=== PATIENT | female | born 2005 | race Caucasian/White ===

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

== ENCOUNTER 2023-07-22 20:40 | Emergency (ER) | payer MEDICAID, SELFPAY ==
[2023-07-22 21:10] VITALS: BP 103/75; PULSE 98; RESP 18; TEMP 36.3; O2SAT 98; BMI 28.3
--- NOTE | 2023-07-22 22:57 | ED.GENADULT ---
HPI - General Adult General Chief complaint: Upper Respiratory Symptoms Stated complaint: cough/flu like symptoms Time Seen by Provider: 07/22/23 21:33 Source: patient, family and RN notes reviewed Mode of arrival: ambulatory Limitations: no limitations History of Present Illness HPI narrative: 18-year-old male presents for evaluation of cough, sore throat, congestion, fever and body aches for a week and half She reports that her daughter and significant other have similar symptoms She denies any shortness of breath or chest pain Patient is otherwise generally healthy No other complaints or concerns at this time Related Data Previous Rx's Medication Instructions Recorded nitrofurantoin 100 mg PO Q12H 5 days #10 caps 12/08/22 monohydrate/macrocrystals 100 mg capsule (Macrobid) Allergies Allergy/AdvReac Type Severity Reaction Status Date / Time No Known Allergies Allergy Unverified 04/04/20 18:56 [No Known Allergies*] Review of Systems Constitutional: Constitutional: Reports body ache(s), Reports chills, Reports fever(s) and Reports headache(s) ENT: Reports headache(s) and Reports sore throat Cardiovascular: Cardiovascular: Denies dyspnea Respiratory: Respiratory: Reports cough and Denies dyspnea Gastrointestinal: Gastrointestinal: Denies abdominal pain, Denies nausea and Denies vomiting Musculoskeletal: Musculoskeletal: Reports back pain Integumentary/Breasts: Skin/Breast: Denies rash Neurologic: Reports headache(s) PMFSH Social History Social History Alcohol intake: never Advance Directives: No Advance Directives Information Provided: No Physical Exam ED Vital Signs: Vital Signs - 24 hr 07/22/23 21:10 Temperature 97.4 F Pulse Rate 98 Respiratory Rate 18 Blood Pressure 103/75 Pulse Oximetry 98 Oxygen Delivery Method Room Air BMI result Body Mass Index 28.3 Const General: healthy appearing, comfortable, no acute distress, alert and awake Nutritional Appearance: well nourished Orientation/consciousness: patient oriented x3 HENMT Head: Yes normocephalic and Yes atraumatic Eyes Eyelids: Yes eyelids normal Conjunctivae: conjunctivae normal Sclerae: sclerae normal Corneas: corneas normal EOM: EOMs intact bilaterally Neck Neck: Yes full ROM Resp Effort & Inspection: normal respiratory effort, able to speak in complete sentences and not labored Skin General skin exam: elasticity normal Neuro General: patient oriented x3 Cranial nerves: Yes Bilaterally intact EOM present Cognition (Neuro): normal cognition Extrem Other: Moving all extremities well without any obvious deformities Medical Decision Making Medical Decision Making MDM Narrative: This is a 18-year-old healthy female presents for evaluation of flu-like symptoms, she tested positive for influenza A. Her daughter and significant other also have influenza a diagnosis. The patient's symptoms started well over a week ago, she is outside the window for Tamiflu treatment, she will be discharged with symptomatic care Differential Diagnosis Differential Diagnoses: The differential diagnosis associated with the presentation includes Influenza Viral syndrome Upper respiratory infection COVID-19 Pneumonia Lab Data Labs: Lab Results 07/22/23 Range/Units 21:31 Influenza Type A (PCR) POSITIVE A (Negative) Influenza Type B (PCR) NEGATIVE (Negative) RSV RNA Qual (PCR) NEGATIVE (Negative) SARS-CoV-2 RNA (RT-PCR) NEGATIVE (Negative) Discharge Plan Discharge Clinical Impression: Influenza Patient Disposition: Home, Self-Care Instructions: Influenza (ED) Additional Instructions: You tested positive for influenza A Use Motrin/Tylenol for fevers, body aches Drink lots of fluids Follow-up with your primary doctor Return for new or worsening symptoms Prescriptions: No Action nitrofurantoin monohyd/m-cryst [Macrobid] 100 mg capsule 100 mg PO Q12H 5 Days Qty: 10 0RF Rx Instructions: must administer with a meal/food Interventions: ED Discharge Assessment Last Done: 07/22/23 23:07 Discharge Date/Time: 07/22/23 23:08
== END 2023-07-22 23:08 | disposition home or self-care (01) ==
PROVIDERS: Emergency Provider Emergency Medicine; PCP Pediatrics
DX: J10.1 Influenza due to other identified influenza virus with other respiratory manifestations (principal); R05.9 Cough, unspecified; Z11.52 Encounter for screening for COVID-19
CPT/HCPCS: 0241U; 71046; 99282; 99283

== ENCOUNTER 2024-05-12 17:32 | Outpatient (REF) | payer MEDICAID, SELFPAY ==
[2024-05-13 11:00] LABS: CT PCR NOT DETECTED (Not Detect.); NG PCR NOT DETECTED (Not Detect.)
== END 2024-05-12 17:33 | disposition home or self-care (01) ==
LOC: HO.HHCLNP 17:32
PROVIDERS: Visit Provider Nurse Practitioner Family
DX: Z00.00 Encounter for general adult medical examination without abnormal findings (principal)
CPT/HCPCS: 87491; 87591